=== PATIENT | male | born 2000 | race Caucasian/White ===

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

== ENCOUNTER 2019-08-14 00:22 | Emergency (ER) | payer BC, MEDICAID ==
[~2019-08-14] VITALS: Ht 175.3 cm; Wt 54.5 kg
[2019-08-14] MEDS ORDERED: AMMONIA AROMATIC INHALANT (FLOOR STOCK) As Ordered ONE (00:56)
[2019-08-14] MEDS ORDERED: NS 1,000 ML IV ONE (01:00)
[2019-08-14 01:06] LABS: BASO # 0.1 10^3/uL (0.0-0.2); BASO % 0.4 % (0.0-1.0); EOS # 0.2 10^3/uL (0.0-0.5); EOS % 1.4 % (0.0-3.0); HEMATOCRIT 46.1 % (42.0-52.0); HEMOGLOBIN 15.8 g/dl (13.5-17.5); LYMPH # 2.6 10^3/uL (1.5-5.0); LYMPH % 21.3 % (24.0-44.0); MEAN CORPUSCULAR HGB CONC 34.3 g/dl (32.0-36.5); MEAN CORPUSCULAR VOLUME 93.3 fl (80.0-96.0); MONO # 0.6 10^3/uL (0.0-0.8); MONO % 4.8 % (0.0-5.0); NEUTROPHILS # 8.8 10^3/uL (1.5-8.5); NEUTROPHILS % 71.7 % (36.0-66.0); PLATELET COUNT, AUTOMATED 266 10^3/uL (150-450); RED BLOOD COUNT 4.94 10^6/uL (4.30-6.10); WHITE BLOOD COUNT 12.3 10^3/uL (4.0-10.0)
--- NOTE | 2019-08-14 01:31 | REPVR ---
PROCEDURE INFORMATION: Exam: CT Head Without Contrast Exam date and time: 08/14/2019 1:19 AM Clinical history: 19 years old, male; Pain; Headache; Additional info: Drug overdose TECHNIQUE: Imaging protocol: Computed tomography of the head without contrast. Radiation optimization: All CT scans at this facility use at least one of these dose optimization techniques: automated exposure control; mA and/or kV adjustment per patient size (includes targeted exams where dose is matched to clinical indication); or iterative reconstruction. COMPARISON: No relevant prior studies available. FINDINGS: Brain: Normal. No hemorrhage. Unremarkable white matter. No mass effect. Ventricles: Normal. No ventriculomegaly. Bones/joints: Expansile lesion of the left frontal calvarium measuring up to 4.4 cm. There is groundglass attenuation. Sinuses: Visualized sinuses are unremarkable. No fluid levels. Mastoid air cells: Visualized mastoid air cells are well aerated. Soft tissues: Unremarkable. IMPRESSION: 1. No acute intracranial abnormality. 2. 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 Electronically signed by: Odin Dean On 08/14/2019 01:31:28 AM
--- NOTE | 2019-08-14 01:40 | REPVR ---
PROCEDURE INFORMATION: Exam: CT Cervical Spine Without Contrast Exam date and time: 08/14/2019 1:19 AM Clinical history: 19 years old, male; Other: Drug overdose TECHNIQUE: Imaging protocol: Computed tomography images of the cervical spine without contrast. Radiation optimization: All CT scans at this facility use at least one of these dose optimization techniques: automated exposure control; mA and/or kV adjustment per patient size (includes targeted exams where dose is matched to clinical indication); or iterative reconstruction. COMPARISON: No relevant prior studies available. FINDINGS: Vertebrae: No acute fracture. Normal alignment. Discs/Spinal canal/Neural foramina: No spinal stenosis. No neural foraminal narrowing. Soft tissues: Unremarkable. Lungs: Lung apices are normal. IMPRESSION: No acute findings. Electronically signed by: Odin Dean On 08/14/2019 01:40:23 AM
[2019-08-14 01:41] LABS: ACETAMINOPHEN LEVEL < 2.0 UG/ML (10.0-30.0); ALBUMIN 4.1 GM/DL (3.2-5.2); ALT/SGPT 37 U/L (12-78); BILIRUBIN,DIRECT < 0.1 MG/DL (0.0-0.2); BILIRUBIN,TOTAL 0.3 MG/DL (0.2-1.0); BLOOD UREA NITROGEN 12 MG/DL (7-18); CALCIUM LEVEL 8.3 MG/DL (8.5-10.1); CARBON DIOXIDE LEVEL 28 MEQ/L (21-32); CHLORIDE LEVEL 109 MEQ/L (98-107); CPK CREATINE PHOSPHOKINASE 177 U/L (39-308); CREATININE FOR GFR 0.72 MG/DL (0.70-1.30); GLUCOSE, FASTING 92 MG/DL (70-100); POTASSIUM SERUM 3.8 MEQ/L (3.5-5.1); SODIUM LEVEL 144 MEQ/L (136-145); TOTAL PROTEIN 7.5 GM/DL (6.4-8.2)
[2019-08-14 05:33] LABS: AMPHETAMINES LEVEL URINE NEGATIVE (NEGATIVE); BARBITURATES URINE NEGATIVE (NEGATIVE); BENZODIAZEPINES URINE NEGATIVE (NEGATIVE); CANNABINOIDS URINE POSITIVE (NEGATIVE); COCAINE METABOLITE URINE NEGATIVE (NEGATIVE); METHADONE URINE NEGATIVE (NEGATIVE); OPIATES URINE NEGATIVE (NEGATIVE); PHENCYCLIDINE URINE NEGATIVE (NEGATIVE)
[2019-08-14 08:45] VITALS: BP 95/50
--- NOTE | 2019-08-15 12:01 | ECGEPIP ---
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
== END 2019-08-14 09:52 | disposition home or self-care (01) ==
LOC: M ED 00:22
DX: F10.129 Alcohol abuse with intoxication, unspecified (principal); Y90.8 Blood alcohol level of 240 mg/100 ml or more; F12.10 Cannabis abuse, uncomplicated; G93.9 Disorder of brain, unspecified; I49.9 Cardiac arrhythmia, unspecified
CPT/HCPCS: 36415; 70450; 72125; 80048; 80076; 80307; 82550; 84443; 85025; 93005; 93041; 94760; 99285; G0480

== ENCOUNTER 2020-07-27 17:58 | Emergency (ER) | payer MEDICAID, SELFPAY ==
[~2020-07-27] VITALS: Ht 172.7 cm; Wt 56.0 kg
[2020-07-27] MEDS ORDERED: AUGM875T28 PO (19:26)
[2020-07-27] MEDS ORDERED: AUGMENTIN 875 MG TAB As Ordered ONE (19:27)
[2020-07-27] MEDS ORDERED: BENZOCAINE 20% GEL 9GM TUBE (ANBESOL MAX STRENGTH) TOP ONE (19:30)
[2020-07-27] MEDS ORDERED: AUGMENTIN 875 MG TAB PO ONE (19:30)
[2020-07-27] MEDS ORDERED: ACETAMINOPHEN 500 MG TAB PO ONE (19:30)
[2020-07-27 19:38] VITALS: BP 116/71
== END 2020-07-27 19:40 | disposition home or self-care (01) ==
LOC: M ED 17:58
DX: K05.20 Aggressive periodontitis, unspecified (principal); K05.10 Chronic gingivitis, plaque induced; K02.9 Dental caries, unspecified; F17.200 Nicotine dependence, unspecified, uncomplicated

== ENCOUNTER 2020-07-29 01:36 | Emergency (ER) | payer SELFPAY ==
[~2020-07-29] VITALS: Ht 172.7 cm; Wt 56.9 kg
[~2020-07-29 01:36] MED LIST: AUGM875T28 PO
[2020-07-29 01:38] VITALS: BP 155/106
[2020-07-29] MEDS ORDERED: ACETAMINOPHEN 325 MG TAB PO ONE (02:15)
[2020-07-29] MEDS ORDERED: IBUPROFEN 600MG TAB PO ONE (02:15)
[2020-07-29] MEDS ORDERED: AMOXICILLIN 500 MG CAP PO ONE (02:15)
[2020-07-29] MEDS ORDERED: AUGM875T28 PO (02:28)
== END 2020-07-29 04:14 | disposition home or self-care (01) ==
LOC: M ED 01:36
DX: K08.89 Other specified disorders of teeth and supporting structures (principal); F17.200 Nicotine dependence, unspecified, uncomplicated

== ENCOUNTER 2020-08-04 22:07 | Emergency (ER) | payer SELFPAY ==
[~2020-08-04] VITALS: Ht 172.7 cm; Wt 56.1 kg
[2020-08-04 22:08] VITALS: BP 110/64
[2020-08-05] MEDS ORDERED: ACET1TAB55 PO (10:19)
[2020-08-05] MEDS ORDERED: PRED20TA PO (11:31)
[2020-08-05] MEDS ORDERED: AMOX500C PO (11:38)
== END 2020-08-05 | disposition left against medical advice (07) ==
LOC: M ED 22:07
DX: Z53.21 Procedure and treatment not carried out due to patient leaving prior to being seen by health care provider (principal)

== ENCOUNTER 2020-08-05 09:49 | Emergency (ER) | payer SELFPAY ==
[~2020-08-05] VITALS: Ht 172.7 cm; Wt 60.0 kg
[2020-08-05] MEDS ORDERED: ACET1TAB55 PO (10:19)
[2020-08-05] MEDS ORDERED: diphenhydrAMINE 25MG CAP PO ONE (10:45)
[2020-08-05] MEDS ORDERED: predniSONE 20 MG TAB PO ONE (10:45)
[2020-08-05] MEDS ORDERED: FAMOTIDINE 20 MG TAB PO ONE (10:45)
[2020-08-05 11:12] LABS: BASO % 0.1 % (0.0-1.0); EOS % 0.2 % (0.0-3.0); HEMATOCRIT 44.6 % (42.0-52.0); HEMOGLOBIN 15.4 g/dl (13.5-17.5); LYMPH # 1.4 10^3/uL (1.5-5.0); LYMPH % 11.4 % (24.0-44.0); MEAN CORPUSCULAR HEMOGLOBIN 30.9 pg (27.0-33.0); MEAN CORPUSCULAR HGB CONC 34.5 g/dl (32.0-36.5); MEAN CORPUSCULAR VOLUME 89.4 fl (80.0-96.0); MONO # 0.5 10^3/uL (0.0-0.8); MONO % 4.1 % (0.0-5.0); NEUTROPHILS # 10.6 10^3/uL (1.5-8.5); NEUTROPHILS % 83.9 % (36.0-66.0); PLATELET COUNT, AUTOMATED 188 10^3/uL (150-450); RED BLOOD COUNT 4.99 10^6/uL (4.30-6.10); WHITE BLOOD COUNT 12.7 10^3/uL (4.0-10.0)
[2020-08-05] MEDS ORDERED: PRED20TA PO (11:31)
[2020-08-05] MEDS ORDERED: AMOX500C PO (11:38)
[2020-08-05 11:50] VITALS: BP 129/73
== END 2020-08-05 11:53 | disposition home or self-care (01) ==
LOC: M ED 09:49
DX: L50.9 Urticaria, unspecified (principal); F17.200 Nicotine dependence, unspecified, uncomplicated; F12.20 Cannabis dependence, uncomplicated

== ENCOUNTER 2020-10-14 04:51 | Emergency (ER) | payer OTHER, SELFPAY ==
[~2020-10-14] VITALS: Ht 170.2 cm; Wt 60.0 kg
[~2020-10-14 04:51] MED LIST changes: +ACET1TAB55 PO; +AMOX500C PO; +PRED20TA PO
--- OUTSIDE RECORDS SUMMARY | 2020-10-14 04:56 | CCD ---
Author Author [facility] Organization [facility] Address Unknown Phone Unavailable Support Name Relationship Address Phone [place] [address] [address] Next Of Kin [address] [place] [address] FRANCIARTEMIO GODOY Next Of Kin [address] [place] [address] UE Next Of Kin Unknown Unavailable MONICA KOROMA Next Of Kin [address] [place] [address] Re-disclosure Warning The records that you are about to access may contain information from federally-assisted alcohol or drug abuse programs. If such information is present, then the following federally mandated warning applies: This information has been disclosed to you from records protected by federal confidentiality rules (42 CFR part 2). The federal rules prohibit you from making any further disclosure of this information unless further disclosure is expressly permitted by the written consent of the person to whom it pertains or as otherwise permitted by 42 CFR part 2. A general authorization for the release of medical or other information is NOT sufficient for this purpose. The Federal rules restrict any use of the information to criminally investigate or prosecute any alcohol or drug abuse patient.The records that you are about to access may contain highly sensitive health information, the redisclosure of which is protected by Article 27-F of the [facility] Public Health law. If you continue you may have access to information: Regarding HIV / AIDS; Provided by facilities licensed or operated by the [facility] Office of Mental Health; or Provided by the [facility] Office for People With Developmental Disabilities. If such information is present, then the following [facility] mandated warning applies: This information has been disclosed to you from confidential records which are protected by state law. State law prohibits you from making any further disclosure of this information without the specific written consent of the person to whom it pertains, or as otherwise permitted by law. Any unauthorized further disclosure in violation of state law may result in a fine or long-term sentence or both. A general authorization for the release of medical or other information is NOT sufficient authorization for further disc losure. Family History Family Member Name Family Member Gender Family Member Status Date o f Status Description Data Source(s) Unknown Unknown Problem [facility] ([facility]) Unknown Unknown Problem [facility] ([facility]) Encounters Encounter Providers Location Date Indications Data Source(s ) Outpatient 08/30/2019 05:32:00 AM EST [facility] Medications Medication Brand Name Start Date Product Form Dose Route Admi nistrative Instructions Pharmacy Instructions Status Indications Reaction Description Data Source(s) 300 mg 10/10/2020 12:00:00 AM EST capsule 20 TAKE ONE CAPSULE BY MOUTH TWICE A DAY FOR 10 DAYS TAKE ONE CAPSULE BY MOUTH TWICE A DAY FOR 10 DAYS SOLD : 10/10/2020 [facility] Insurance Providers Payer name Policy type / Coverage type Policy ID Covered libertarian ID Covered libertarian's relationship to euceda Policy E[employer] Plan Information SELF PAY ONLY [id number] SP [id number] [address] [id number] SP [id number] MEDICAID [id number] SP [id number] MEDICAID M [id number] S [id number] [employer] BCBS B [id number] C V[place] [id number] [place]BS [place] P[place] 302/307 [id number] MEDICAID [id number] SP [id number] BCBS/[employer] Commercial [id number] Family Dependent [id number] BCBS/[employer] Commercial Family Dependent BCBS [place] PPO 302/307 [id number] [facility] [id number] [id number] [phone]
[2020-10-14 05:32] LABS: MEAN CORPUSCULAR HEMOGLOBIN 31.4 pg (27.0-33.0); MEAN CORPUSCULAR HGB CONC 34.1 g/dl (32.0-36.5); MEAN CORPUSCULAR VOLUME 92.1 fl (80.0-96.0); PLATELET COUNT, AUTOMATED 258 10^3/uL (150-450); RED BLOOD COUNT 4.78 10^6/uL (4.30-6.10); WHITE BLOOD COUNT 18.1 10^3/uL (4.0-10.0)
[2020-10-14 06:02] LABS: AMPHETAMINES LEVEL URINE NEGATIVE (NEGATIVE); BARBITURATES URINE NEGATIVE (NEGATIVE); BENZODIAZEPINES URINE NEGATIVE (NEGATIVE); CANNABINOIDS URINE POSITIVE (NEGATIVE); COCAINE METABOLITE URINE NEGATIVE (NEGATIVE); METHADONE URINE NEGATIVE (NEGATIVE); OPIATES URINE NEGATIVE (NEGATIVE); PHENCYCLIDINE URINE NEGATIVE (NEGATIVE)
[2020-10-14 06:14] LABS: ACETAMINOPHEN LEVEL < 2.0 UG/ML (10.0-30.0); ALBUMIN 4.3 GM/DL (3.2-5.2); ALT/SGPT 28 U/L (12-78); BILIRUBIN,DIRECT 0.2 MG/DL (0.0-0.2); BILIRUBIN,TOTAL 0.3 MG/DL (0.2-1.0); BLOOD UREA NITROGEN 15 MG/DL (7-18); CALCIUM LEVEL 8.8 MG/DL (8.5-10.1); CARBON DIOXIDE LEVEL 25 MEQ/L (21-32); CHLORIDE LEVEL 106 MEQ/L (98-107); CREATININE FOR GFR 0.88 MG/DL (0.70-1.30); ETHYL ALCOHOL (ETHANOL) 0.282 % (0.000-0.010); GLOMERULAR FILTRATION RATE > 60.0 (>60); GLUCOSE, FASTING 111 MG/DL (70-100); POTASSIUM SERUM 4.3 MEQ/L (3.5-5.1); SALICYLATE LEVEL 4.5 MG/DL (5.0-30.0); SODIUM LEVEL 140 MEQ/L (136-145); TOTAL PROTEIN 7.6 GM/DL (6.4-8.2)
--- OUTSIDE RECORDS SUMMARY | 2020-10-14 06:28 | CCD ---
Author Author [facility] Organization [facility] Address Unknown Phone Unavailable Support Name Relationship Address Phone [place] [address] [address] Next Of Kin [address] [place] [address] FRANCIARTEMIO GODOY Next Of Kin [address] [place] [address] UE Next Of Kin Unknown Unavailable MONICA KOROMA Next Of Kin [address] [place] [address] Re-disclosure Warning The records that you are [...] is protected by Article 27-F of the [facility] Public Health law. If you continue you may have access to information: Regarding HIV / AIDS; Provided by facilities licensed or operated by the [facility] Office of Mental Health; or Provided by the [facility] Office for People With Developmental Disabilities. If such information is present, then the following [facility] mandated warning applies: This information has [...] law may result in a fine or mcfp sentence or both. A general authorization for [...] type / Coverage type Policy ID Covered democrat ID Covered democrat's relationship to euceda Policy Euceda Plan Information SELF PAY ONLY [id number] SP [id number] EMEDNY [id number] SP [id number] MEDICAID [id number] SP [id number] MEDICAID M [id number] S [id number] [employer] BCBS B [id number] C VYS [id number] [place]BS [place] PPO 302/307 [id number] MO2 [id number] MEDICAID [id number] SP [id number] BCBS/[employer] Commercial [id number] Family Dependent [id number] BCBS/[employer] Commercial Family Dependent BCBS [place] PPO 302/307 [id number] [facility] [id number] [id number] [phone]
[2020-10-14 13:24] VITALS: BP 133/76
== END 2020-10-14 13:30 | disposition home or self-care (01) ==
LOC: M ED 04:51
DX: F10.10 Alcohol abuse, uncomplicated (principal); Y90.1 Blood alcohol level of 20-39 mg/100 ml
CPT/HCPCS: 36415; 80048; 80076; 80307; 84443; 85027; 99284; G0480

== ENCOUNTER 2022-05-28 05:48 | Emergency (ER) | payer OTHER ==
[~2022-05-28] VITALS: Ht 172.7 cm; Wt 59.1 kg
[2022-05-28] MEDS ORDERED: IBUPROFEN 600MG TAB PO ONE (07:20)
[2022-05-28] MEDS ORDERED: LIDOCAINE VISCOUS 2% SOLN 15ML UDC TOP ONE (07:20)
[2022-05-28] MEDS ORDERED: AMOXICILLIN 500 MG CAP PO ONE (07:20)
[2022-05-28] MEDS ORDERED: AMOX500C PO ×2 (07:25→07:50)
[2022-05-28] MEDS ORDERED: LIDVISCBTL TOP ×2 (07:25→07:50)
[2022-05-28] MEDS ORDERED: IBUP-1022 PO ×2 (07:25→07:50)
[2022-05-28 07:33] VITALS: BP 110/72
== END 2022-05-28 07:39 | disposition home or self-care (01) ==
LOC: M ED 05:48
DX: K04.7 Periapical abscess without sinus (principal)

== ENCOUNTER 2025-01-11 08:24 | Day surgery (SDC) | payer OTHER ==
[~2025-01-11] VITALS: Ht 172.7 cm; Wt 58.2 kg
[~2025-01-11 08:24] MED LIST changes: +IBUP-1022 PO; +LIDVISCBTL TOP
[2025-01-11] MEDS: LR 1,000 ML IV SCH (10:02)
[2025-01-11] MEDS ORDERED: ROCURONIUM BROMIDE 50MG/5ML VIAL As Ordered ONE (10:21)
[2025-01-11] MEDS ORDERED: ONDANSETRON 4MG 2ML VIAL As Ordered ONE (10:21)
[2025-01-11] MEDS ORDERED: SUGAMMADEX SODIUM 500 MG/5 ML VIAL (BRIDION) As Ordered ONE (10:21)
[2025-01-11] MEDS ORDERED: propofoL 200 MG/20 ML VIAL As Ordered ONE (10:22)
[2025-01-11] MEDS ORDERED: LIDOCAINE 2% 100MG/5ML SDV (FOR ANES.) As Ordered ONE (10:22)
[2025-01-11] MEDS ORDERED: fentaNYL 100 MCG/2 ML INJECTION As Ordered ONE (10:25)
[2025-01-11] MEDS ORDERED: MIDAZOLAM INJ 2MG/2ML VIAL As Ordered ONE (10:25)
[2025-01-11] MEDS: AMPICILLIN SOD/SULBACTAM SOD 3 GM in D5W MINI-BAG 100 ML IV ONE (11:31)
[2025-01-11] MEDS: OXYMETAZOLINE 0.05% NASAL SPRAY As Ordered ONE (11:31)
[2025-01-11] MEDS: CHLORHEXIDINE GLUCONATE 0.12 % 15ML UDC (PERIDEX ORAL RINSE) As Ordered ONE (11:48)
[2025-01-11] MEDS: LIDOCAINE 2% W/ EPINEPHRINE 1.7 ML DENTAL INJ As Ordered ONE (11:54)
[2025-01-11] MEDS ORDERED: ACETAMINOPHEN 1000MG/100ML IV BAG As Ordered ONE (12:07)
[2025-01-11] MEDS: BUPivacaine LIPOSOME/PF 266MG 20ML VIAL (13.3MG/ML)(EXPAREL) As Ordered ONE (12:22)
[2025-01-11] MEDS ORDERED: LR 1,000 ML IV SCH (12:35)
[2025-01-11] MEDS ORDERED: fentaNYL 100 MCG/2 ML INJECTION IV PRN (12:35)
[2025-01-11] MEDS: ONDANSETRON 4MG 2ML VIAL IV PRN (13:02)
[2025-01-11] MEDS: HYDROMORPHONE HCL 0.5 MG/ 0.5 ML SYRINGE IV PRN (13:02)
[2025-01-11] MEDS: oxyCODONE 5MG TAB PO PRN (13:06)
[2025-01-11 14:09] VITALS: BP 145/82; TEMP 97.4; O2SAT 97
== END 2025-01-11 14:18 | disposition home or self-care (01) ==
LOC: M SDC 08:24
PROVIDERS: ATTEND Dentist
DX: K02.9 Dental caries, unspecified (principal)
CPT/HCPCS: 88300; D7140; D7210; J0131; J0295; J0666; J1100; J1171; J2250; J2405; J3010